=== PATIENT | female | born 1965 | race Caucasian/White ===

== ENCOUNTER 2024-10-28 19:11 | Inpatient (IN) | payer OTHER ==
[~2024-10-28] VITALS: Ht 162.6 cm; Wt 88.0 kg
[2024-10-28] MEDS ORDERED: ONDANSETRON HCL 4MG/2ML INJ IV STA (19:42)
[2024-10-28] MEDS ORDERED: MORPHINE SULFATE 4 MG/ML INJ (FOR IV/IM USE) IV STA (19:42)
[2024-10-28 20:50] LABS: BASOPHILS % 0.6 % (0.0-2.0); EOSINOPHILS % 1.2 % (0.0-5.0); HEMATOCRIT. 44.6 % (36.0-48.0); HEMOGLOBIN. 14.9 g/dL (12.0-16.0); LYMPHOCYTES % 18.4 % (20.0-50.0); MEAN PLATELET VOLUME 7.8 fl (7.4-10.4); MONOCYTES % 6.8 % (2.0-8.0); NEUTROPHILS % 73.0 % (40.0-76.0); PLATELET 307 x1000/uL (130-400); RED BLOOD CELL COUNT 4.70 mill/uL (4.2-5.4); RED CELL DISTRIBUTION WIDTH 13.6 % (11.6-14.6)
[2024-10-28 20:56] LABS: CLARITY URINE CLEAR (CLEAR); COLOR URINE YELLOW (YELLOW); GLUCOSE URINE NEGATIVE (NEGATIVE); KETONES URINE 1+ (NEGATIVE); LEUKOCYTE ESTERASE URINE TRACE (NEGATIVE); NITRITE URINE NEGATIVE (NEGATIVE); OCCULT BLOOD URINE NEGATIVE (NEGATIVE); PH URINE >=9.0 (4.5-8.0); PROTEIN URINE 1+ (NEGATIVE); SPECIFIC GRAVITY URINE 1.016 (1.005-1.030); UROBILINOGEN URINE 1.0 E.U./dL (0.2-1.0)
[2024-10-28 20:58] LABS: INR 1.0
[2024-10-28 21:04] LABS: CREATININE 0.8 mg/dL (0.6-1.0); TROPONIN I HIGH SENSITIVITY < 4 ng/L (3.0-34); UREA NITROGEN BLOOD 8 mg/dL (9-23)
[2024-10-28 21:06] LABS: ASPARTATE AMINOTRANSFERASE 22 IU/L (<34); BILIRUBIN DIRECT 0.3 mg/dL (<=3.0); BILIRUBIN TOTAL 1.0 mg/dL (0.1-1.0); PROTEIN TOTAL 7.3 g/dL (6.0-8.3)
[2024-10-28 21:07] LABS: BACTERIA URINE NONE SEEN; RBC URINE NONE SEEN /hpf (0-2); SQUAMOUS EPITHELIAL CELL URINE FEW /lpf (RARE/1+); WBC URINE 0-2 /hpf (0-2)
[2024-10-28] MEDS: MORPHINE SULFATE 4 MG/ML INJ (FOR IV/IM USE) IV SCH (22:09)
[2024-10-28] MEDS: ONDANSETRON HCL 4MG/2ML INJ IV SCH (22:09)
[2024-10-29 01:00] VITALS: BP 166/101; PULSE 72; RESP 20; TEMP 35.9; O2SAT 99
[2024-10-29] MEDS ORDERED: IPRATROPIUM/ALBUTEROL 0.5-3(2.5)MG/3ML NEB HHN PRN (01:00)
[2024-10-29] MEDS ORDERED: GUAIFENESIN 200MG/10ML SUGAR FREE UDC PO PRN (01:00)
[2024-10-29] MEDS ORDERED: ACETAMINOPHEN 325MG TABLET PO PRN ×2 (01:00)
[2024-10-29] MEDS ORDERED: MAGNESIUM/ALUMINUM HYDROXIDE/SIMETHICONE 30ML UDC PO PRN (01:00)
[2024-10-29] MEDS ORDERED: DOCUSATE SODIUM 100MG CAPSULE PO PRN (01:00)
[2024-10-29 01:21] VITALS: BP 166/101; PULSE 78; RESP 18; TEMP 36
[2024-10-29] MEDS: CLONIDINE 0.1MG TABLET PO PRN (02:43)
[2024-10-29] MEDS: ONDANSETRON HCL 4MG/2ML INJ IV PRN ×2 (02:43→10:04)
[2024-10-29] MEDS ORDERED: HYDRALAZINE 20MG/ML VIAL IV PRN (03:15)
[2024-10-29] MEDS ORDERED: HYDRALAZINE 10 MG in SODIUM CHLORIDE 0.9% 49.5 ML IV PRN (03:15)
[2024-10-29] MEDS: DEXT 5%/0.45% NACL 1000ML 1,000 ML IV SCH (03:37)
[2024-10-29 04:00] VITALS: BP 149/91; PULSE 75; RESP 18; TEMP 35.9; O2SAT 96
[2024-10-29] MEDS ORDERED: BUPIVACAINE HCL/PF 0.5% (5MG/ML) 10ML ONE (07:24)
[2024-10-29] MEDS ORDERED: SKIN ADHESIVE 0.7 GM EA TOP ONE (07:24)
[2024-10-29] MEDS ORDERED: EPHEDRINE SULFATE 50MG/ML VIAL ONE (07:44)
[2024-10-29] MEDS ORDERED: ROCURONIUM BROMIDE 10MG/ML VIAL 5ML IV ONE (07:44)
[2024-10-29] MEDS ORDERED: SUCCINYLCHOLINE CHLORIDE 200MG/10ML IV ONE (07:44)
[2024-10-29] MEDS ORDERED: ONDANSETRON HCL 4MG/2ML INJ IV PRN (07:45)
[2024-10-29] MEDS ORDERED: PHENYLEPHRINE HCL 10MG/ML 1ML IV ONE (07:45)
[2024-10-29] MEDS ORDERED: FENTANYL CITRATE/PF 50MCG/ML 2ML VIAL ONE ×2 (07:45→08:19)
[2024-10-29] MEDS ORDERED: PROPOFOL 200MG/20ML VIAL IV ONE (07:45)
[2024-10-29] MEDS ORDERED: MORPHINE SULFATE 2 MG/ML INJ (NOT FOR IM USE) IV PRN (07:45)
[2024-10-29] MEDS ORDERED: CEFAZOLIN SODIUM 1000MG/VIAL ONE (07:46)
[2024-10-29] MEDS ORDERED: NALOXONE HCL 0.4MG/ML VIAL IV PRN (08:00)
[2024-10-29] MEDS ORDERED: ACETAMINOPHEN 1000MG/100ML 100 ML IV ONE (08:45)
[2024-10-29] MEDS: HYDROMORPHONE HCL/PF 1MG/ML INJ IV PRN (10:03)
[2024-10-29 11:54] LABS: HEPATITIS C AB NON REACTIVE (Neg) (Negative)
[2024-10-29 12:00] VITALS: BP 156/88; PULSE 82; RESP 20; TEMP 36.3; O2SAT 99
[2024-10-29] MEDS: DEXT 5%/0.45% NACL KCL 20MEQ/L 1,000 ML IV SCH (13:08)
[2024-10-29 16:00] VITALS: BP 129/77; PULSE 76; RESP 18; TEMP 36.7; O2SAT 96
[2024-10-29 20:00] VITALS: BP 105/63; PULSE 71; RESP 18; TEMP 36.3; O2SAT 95
[2024-10-30] VITALS: BP 110/66; PULSE 82; RESP 16; TEMP 36.7; O2SAT 99
[2024-10-30 04:00] VITALS: BP 102/63; PULSE 76; RESP 20; TEMP 36.2; O2SAT 99
[2024-10-30] MEDS: MORPHINE SULFATE 4 MG/ML INJ (FOR IV/IM USE) IV PRN (06:09)
[2024-10-30 08:00] VITALS: BP 109/68; PULSE 75; RESP 18; TEMP 36.6; O2SAT 95
[2024-10-30 08:04] LABS: BASOPHILS % 0.3 % (0.0-2.0); EOSINOPHILS % 1.6 % (0.0-5.0); HEMATOCRIT. 39.2 % (36.0-48.0); HEMOGLOBIN. 13.1 g/dL (12.0-16.0); LYMPHOCYTES % 21.6 % (20.0-50.0); MEAN PLATELET VOLUME 8.1 fl (7.4-10.4); MONOCYTES % 8.4 % (2.0-8.0); NEUTROPHILS % 68.1 % (40.0-76.0); PLATELET 260 x1000/uL (130-400); RED BLOOD CELL COUNT 4.12 mill/uL (4.2-5.4); RED CELL DISTRIBUTION WIDTH 13.6 % (11.6-14.6)
[2024-10-30 08:19] LABS: CREATININE 0.7 mg/dL (0.6-1.0); TRIGLYCERIDE 62 mg/dL (0-150); UREA NITROGEN BLOOD 8 mg/dL (9-23)
[2024-10-30 08:20] LABS: LDL CHOLESTEROL 55 mg/dL (5-100)
[2024-10-30 08:24] LABS: T4 FREE 1.50 ng/dL (0.89-1.76)
[2024-10-30 12:00] VITALS: BP 118/65; PULSE 82; RESP 17; TEMP 37.2; O2SAT 95
[2024-10-30 16:00] VITALS: BP 119/70; PULSE 72; RESP 18; TEMP 37.1; O2SAT 95
[2024-10-30 20:00] VITALS: BP 110/67; PULSE 69; RESP 17; TEMP 36.7; O2SAT 96
[2024-10-31] VITALS: BP 100/69; PULSE 74; RESP 16; TEMP 36.1; O2SAT 95
[2024-10-31 04:00] VITALS: BP 118/72; PULSE 74; RESP 16; TEMP 36.7; O2SAT 95
[2024-10-31 07:14] LABS: CREATININE 0.6 mg/dL (0.6-1.0)
[2024-10-31 07:15] LABS: UREA NITROGEN BLOOD 6 mg/dL (9-23)
[2024-10-31 07:17] LABS: PHOSPHORUS 2.2 mg/dL (2.5-4.9)
[2024-10-31 08:00] VITALS: BP 113/67; PULSE 70; RESP 18; TEMP 36.6; O2SAT 95
[2024-10-31] MEDS: ENOXAPARIN 40MG/0.4ML SYR SUBCUT SCH (08:23)
[2024-10-31] MEDS: PANTOPRAZOLE SODIUM 40 MG/VIAL IV SCH (08:23)
[2024-10-31] MEDS ORDERED: ENOXAPARIN 40MG/0.4ML SYR SUBCUT SCH (09:00)
[2024-10-31 12:00] VITALS: BP 124/61; PULSE 63; RESP 17; TEMP 36.5; O2SAT 95
[2024-10-31 16:00] VITALS: BP 128/77; PULSE 67; RESP 18; TEMP 36.6; O2SAT 95
[2024-10-31 20:00] VITALS: BP 136/76; PULSE 74; RESP 20; TEMP 36.6; O2SAT 95
[2024-11-01] VITALS: BP 145/82; PULSE 72; RESP 20; TEMP 36.6; O2SAT 96
[2024-11-01 04:00] VITALS: BP 149/83; PULSE 63; RESP 20; TEMP 36.5; O2SAT 95
[2024-11-01 08:00] VITALS: BP 140/78; PULSE 67; RESP 17; TEMP 36.6; O2SAT 97
[2024-11-01 12:00] VITALS: BP 139/80; PULSE 72; RESP 18; TEMP 37.2; O2SAT 97
[2024-11-01 16:00] VITALS: BP 132/69; PULSE 65; RESP 16; TEMP 36.6; O2SAT 97
[2024-11-01 20:00] VITALS: BP 127/79; PULSE 69; RESP 19; TEMP 36.3; O2SAT 95
[2024-11-02] VITALS: BP 143/86; PULSE 69; RESP 19; TEMP 36.1; O2SAT 95
[2024-11-02 04:00] VITALS: BP 135/83; PULSE 60; RESP 19; TEMP 36.4; O2SAT 95
[2024-11-02 08:12] VITALS: BP 134/84; PULSE 60; RESP 17; TEMP 36.6; O2SAT 98
[2024-11-02] MEDS ORDERED: ACET-2708 MT (11:18)
[2024-11-02] MEDS ORDERED: DOCU-138 MT (11:18)
[2024-11-02 11:27] VITALS: BP 134/84; PULSE 60; TEMP 97.8; O2SAT 98
[2024-11-02 12:00] VITALS: BP 133/77; PULSE 63; RESP 17; TEMP 36.9; O2SAT 98
== END 2024-11-02 14:15 | disposition home or self-care (01) | DRG 228 ==
LOC: ER 19:11 → EDBEDREQ 21:16 → 6EST 23:27 → EDBEDREQ 23:30 → ENRESERV 23:59
PROVIDERS: ADMIT Internal Medicine; ATTEND Internal Medicine
PROC: 0WUF0JZ Supplement Abdominal Wall with Synthetic Substitute, Open Approach (ICD-10-PCS; principal; 2024-10-29)
DX: K42.0 Umbilical hernia with obstruction, without gangrene (principal); R18.8 Other ascites; K74.60 Unspecified cirrhosis of liver; E66.811 Obesity, class 1; F17.210 Nicotine dependence, cigarettes, uncomplicated; R73.03 Prediabetes; I10 Essential (primary) hypertension; I16.0 Hypertensive urgency; F10.20 Alcohol dependence, uncomplicated; Z68.33 Body mass index [BMI] 33.0-33.9, adult; Z71.6 Tobacco abuse counseling; Z88.1 Allergy status to other antibiotic agents
CPT/HCPCS: 36415; 74176; 80048; 80061; 80076; 81003; 82962; 83036; 83735; 84100; 84439; 84443; 84484; 85025; 86705; 86850; 86900; 87340; 88302; 93005; 97162; 99291; A4606; J0330; J0665; J0690; J1171; J1650; J2270; J2371; J2405; J2470; J2704; J3010; J3490; J7030; C1781; J0131